=== PATIENT | female | born 1995 | race Caucasian/White ===

== ENCOUNTER 2018-03-05 18:04 | Emergency (ER) | payer OTHER ==
[~2018-03-05] VITALS: Ht 149.9 cm; Wt 56.2 kg
[2018-03-05] MEDS ORDERED: ADVIL200 MG (18:09)
== END 2018-03-05 22:20 | disposition home or self-care (01) ==
LOC: ER 18:04
DX: M62.838 Other muscle spasm (principal)

== ENCOUNTER 2018-06-05 10:32 | Emergency (ER) | payer OTHER ==
[~2018-06-05] VITALS: Ht 149.9 cm; Wt 58.1 kg
[~2018-06-05 10:32] MED LIST: ADVIL200 MG
== END 2018-06-05 19:51 | disposition home or self-care (01) ==
LOC: ER 10:32
DX: O26.891 Other specified pregnancy related conditions, first trimester (principal); K29.70 Gastritis, unspecified, without bleeding; Z34.01 Encounter for supervision of normal first pregnancy, first trimester